=== PATIENT | male | born 2000 | race Caucasian/White ===

== ENCOUNTER 2023-07-27 14:43 | Emergency (ER) | payer OTHER ==
[2023-07-27 14:49] VITALS: BP 165/86; PULSE 84; RESP 20; TEMP 97.6; BMI 36.9
== END 2023-07-27 16:34 | disposition home or self-care (01) ==
LOC: JERFT 14:43
DX: M25.552 Pain in left hip (principal)
CPT/HCPCS: 73502-TC-LT-FY; 99283-25

== ENCOUNTER 2023-09-20 09:09 | Emergency (ER) | payer OTHER ==
[2023-09-20 09:23] VITALS: BP 126/68; PULSE 68; RESP 16; TEMP 97.5; BMI 36.9
== END 2023-09-20 11:12 | disposition home or self-care (01) ==
LOC: JERFT 09:09
DX: H61.23 Impacted cerumen, bilateral (principal); H92.01 Otalgia, right ear; R09.81 Nasal congestion; J02.9 Acute pharyngitis, unspecified
CPT/HCPCS: 99283-25

== ENCOUNTER 2024-11-15 14:32 | Emergency (ER) | payer SELFPAY ==
[2024-11-15 14:35] VITALS: BP 131/90; PULSE 90; RESP 18; TEMP 98.2; BMI 36.9
== END 2024-11-15 15:09 | disposition home or self-care (01) ==
LOC: JERFT 14:32
DX: M79.672 Pain in left foot (principal); X50.1XXA Overexertion from prolonged static or awkward postures, initial encounter
CPT/HCPCS: 99283-25